=== PATIENT | male | born 1945 | race Caucasian/White ===

== ENCOUNTER 2016-04-02 13:26 | Inpatient (IN) | payer OTHER ==
--- NOTE | 2016-04-02 13:52 | PROVIDER DOCUMENTATION ---
Addendum entered and electronically signed by Domingo Gusman Scribe 04/02/16 17 :32: Departure - Departure Time of Disposition Order: 17:31 DIAGNOSIS: Elevated d-dimer, Palpitations CHF (congestive heart failure) Qualifiers: Congestive heart failure type: unspecified congestive heart failure type Congestive heart failure chronicity: unspecified congestive heart failure chronicity Qualified Code(s): I50.9 - Heart failure, unspecified Disposition: ADMITTED INPATIENT 09 Certified Medical Emergency: Emergent Condition: Stable Additional Instructions: Follow up with pcp. Take lasix as instructed ED Follow Up Instructions: You have been treated by a care provider in the Emergency Department. These instructions are being provided to you so you can have an understanding of how to care for yourself upon discharge. Upon discharge from the Emergency Department, you are responsible for making arrangements for follow-up care by a physician of your choice. Take all prescribed medications as directed. Return to the Emergency Department immediately for any new or worsening symptoms. You may call the Physician Referral phone number at [phone] to obtain a list of Physicians who are taking new patients. Referrals: None,PCP [Primary Care Provider] - Original Note: HPI-Cardiac General - General Source: patient - History of Present Illness-Cardiac Onset/Duration: just prior to arrival Timing: still present Palpitation Quality: fast/pounding heart beat Prior Chest Pain/Cardiac Workup: reports: no prior chest pain Associated Symptoms: reports: fatigue, weakness <Domingo Gusman - Last Filed: 04/02/16 17:31> <Leora David - Last Filed: 04/02/16 17:55> - General Chief Complaint: Palpitations Stated Complaint: sent from urgent care for further eval Time Seen by Provider: 04/02/16 13:40 - History of Present Illness-Cardiac Nature of Presenting Problem: 70 Yo M presents to the ER referred by Urgent care due to palpitations and heart murmur. Pt reports he feels fine just having weakness. Pt reports they have a referral to but urgent care told them to come to er. Pt has had recent cough and sinus congestion. (Domingo Gusman) Reports severe SOB and he can hardly walk. [id number] on ED arrival. Sent over from an Urgent care. Pt does not see doctors with stating last doctor visit was in [address]. Dr. Orozco paged for possible [facility] admission - it is after 5PM. (Leora David) Review of Systems - Adult - REVIEW OF SYSTEMS - ADULT Constitutional: denies: chills, fever, fatique Eyes: reports: no symptoms reported Ears, Nose, Mouth & Throat: reports: no symptoms reported Cardiovascular: reports: see HPI, palpitations. denies: chest pain, edema Respiratory: denies: cough, shortness of breath, wheezing Gastrointestinal: reports: no symptoms reported Genitourinary: reports: no symptoms reported Musculoskeletal: reports: no symptoms reported Integumentary: reports: no symptoms reported Neurological: reports: no symptoms reported Psychiatric: reports: no symptoms reported Endocrine: reports: no symptoms reported Hematologic/Lymphatic: reports: no symptoms reported Allergic/Immunologic: reports: no symptoms reported All Other Systems: Reviewed and Negative <Domingo Gusman - Last Filed: 04/02/16 17:31> Past History - Adult - PAST MEDICAL HISTORY-ADULT Review of Records: reports: Nursing Assessment Review Major Childhood Illnesses: reports: denies history Cardiovascular: reports: denies history Respiratory: reports: denies history - IMMUNIZATION STATUS Childhood Immunizations: See Nurse Assessment Flu Vaccine: See Nurse Assessment - SOCIAL HISTORY Smoking: denies Substance Use: none/never <Domingo Gusman - Last Filed: 04/02/16 17:31> Physical Exam-General - PHYSICAL EXAM-ADULT Initial Vital Signs Reviewed: Yes - CONSTITUTIONAL General Appearance: appears well, alert - EYES Eyes: pink conjunctivae, fundi clear, no AV nicking - RESPIRATORY Respiratory: chest non-tender, lungs clear, normal breath sounds, no respiratory distress - CARDIOVASCULAR Cardiovascular: tachycardia - MUSCULOSKELETAL Back Exam: no CVA tenderness, no vertebral tenderness Extremity: normal range of motion, non-tender - SKIN Integumentary: normal color, warm/dry - PSYCHIATRIC Psych/Mental Status: normal mood/affect, normal thought content, normal thought process, oriented x 3 <Domingo Gusman - Last Filed: 04/02/16 17:31> Progress - EKG 1 Time of EKG reading by physician:: 13:49 EKG Read and Signed by:: Leora David EKG Interpretation (*Must complete 3 of following elements*): Abnormal ( possible LAE) Rate: 112 Rhythm: sinus tachycardia [place]: left - XRAY 1 XRAY: Bilateral XRAY Study: Chest Impression: Normal XRAY Interpretation: cmg; ? nodule mid left lung follow recommended - CT/MRI 1 CT Study: Thorax Impression: Abnormal, See EMR Report CT Results: warehouse traffic supervisor pe;cmg;atelectasis; <Domingo Gusman - Last Filed: 04/02/16 17:31> - REASSESSMENT Reassessment #1 Time Reassessed: 17:48 Status: unchanged (Discussed with Dr. Roman, who agrees admit and also agrees to admit to Dr. Orozco at [facility]) - CONSULTS/PCP/HOSPITALIST Notification Time Discussed: 17:39 Reason/Comments: Admit to Dr. Orozco at [facility] <Triston Davidnikko X - Last Filed: 04/02/16 17:55> - PLAN OF CARE/RESULTS Progress/Plan/Lab Results: Orders Category Date Time Status Cardiac Monitoring DIRECTED Care 04/02/16 13:55 Active Saline Loc NOW Care 04/02/16 13:55 Active CHEST-2 VIEWS [RAD] Stat Exams 04/02/16 13:55 Ordered CBC WITH ELECTRONIC DIFF [HEME] Stat Lab 04/02/16 13:55 Uncollected CK PROFILE [SP CHEM] Stat Lab 04/02/16 13:55 Uncollected COMPREHENSIVE METABOLIC PANEL [CHEM] Stat Lab 04/02/16 13:55 Uncollected D-DIMER [CHEM] Stat Lab 04/02/16 13:55 Uncollected MAGNESIUM [CHEM] Stat Lab 04/02/16 13:55 Uncollected PRO B-NATRIURETIC PEPTIDE Stat Lab 04/02/16 13:55 Uncollected PROTIME WITH INR [COAG] Stat Lab 04/02/16 13:55 Uncollected PTT [COAG] Stat Lab 04/02/16 13:55 Uncollected TROPONIN T Stat Lab 04/02/16 13:55 Uncollected EKG [EKG] Stat Ther 04/02/16 13:34 Ordered Vital Signs - 24 hr 04/02/16 13:35 Temperature 97.3 F L Pulse Rate 119 H Respiratory 22 Rate Blood Pressure 134/89 O2 Sat by Pulse 97 Oximetry Laboratory Tests 04/02/16 04/02/16 04/02/16 14:35 14:35 14:35 WBC 7.68 RBC 5.61 Hgb 17.1 Hct 52.0 MCV 92.7 MCH 30.5 MCHC 32.9 L RDW Std Deviation 15.1 H Plt Count 204 MPV 11.2 H Immature Gran % (Auto) 0.0 Neut % (Auto) 71.1 Lymph % (Auto) 19.4 L [place] % (Auto) 8.5 Eos % (Auto) 0.5 Baso % (Auto) 0.5 Immature Gran # (Auto) 0.00 Neut # (Auto) 5.46 Lymph # (Auto) 1.49 [place] # (Auto) 0.65 H Eos # (Auto) 0.04 Baso # (Auto) 0.04 PT INR PTT (Actin FS) D-Dimer 0.69 H Sodium 145 Potassium 4.8 Chloride 103 Carbon Dioxide 20 L Anion Gap 22 BUN 16 Creatinine 1.9 H Estimated GFR/1.73 m2 35 BUN/Creatinine Ratio 8 Glucose 128 H Calculated Osmolality 292 Calcium 9.6 Magnesium 2.0 Total Bilirubin 2.63 H AST 34 ALT 21 Alkaline Phosphatase 83 Creatine Kinase 178 Troponin T Fgo-D-Ncsdzicsbhi Pept Total Protein 7.7 Albumin 4.1 Globulin 3.6 Albumin/Globulin Ratio 1.1 04/02/16 04/02/16 04/02/16 14:35 14:35 14:35 WBC RBC Hgb Hct MCV MCH MCHC RDW Std Deviation Plt Count MPV Immature Gran % (Auto) Neut % (Auto) Lymph % (Auto) [place] % (Auto) Eos % (Auto) Baso % (Auto) Immature Gran # (Auto) Neut # (Auto) Lymph # (Auto) [place] # (Auto) Eos # (Auto) Baso # (Auto) PT 14.0 H INR 1.32 PTT (Actin FS) 29.0 D-Dimer Sodium Potassium Chloride Carbon Dioxide Anion Gap BUN Creatinine Estimated GFR/1.73 m2 BUN/Creatinine Ratio Glucose Calculated Osmolality Calcium Magnesium Total Bilirubin AST ALT Alkaline Phosphatase Creatine Kinase Troponin T < 0.010 Dld-D-Xgjmvgxjzim Pept 4674 H Total Protein Albumin Globulin Albumin/Globulin Ratio (Domnigo Gusman) Laboratory Results - last 24 hr 04/02/16 04/02/16 04/02/16 14:35 14:35 14:35 WBC 7.68 RBC 5.61 Hgb 17.1 Hct 52.0 MCV 92.7 MCH 30.5 MCHC 32.9 L RDW Std Deviation 15.1 H Plt Count 204 MPV 11.2 H Immature Gran % (Auto) 0.0 Neut % (Auto) 71.1 Lymph % (Auto) 19.4 L [place] % (Auto) 8.5 Eos % (Auto) 0.5 Baso % (Auto) 0.5 Immature Gran # (Auto) 0.00 Neut # (Auto) 5.46 Lymph # (Auto) 1.49 [place] # (Auto) 0.65 H Eos # (Auto) 0.04 Baso # (Auto) 0.04 PT INR PTT (Actin FS) D-Dimer 0.69 H Sodium 145 Potassium 4.8 Chloride 103 Carbon Dioxide 20 L Anion Gap 22 BUN 16 Creatinine 1.9 H Estimated GFR/1.73 m2 35 BUN/Creatinine Ratio 8 Glucose 128 H Calculated Osmolality 292 Calcium 9.6 Magnesium 2.0 Total Bilirubin 2.63 H AST 34 ALT 21 Alkaline Phosphatase 83 Creatine Kinase 178 Troponin T Nzw-D-Ndzlmijnpud Pept Total Protein 7.7 Albumin 4.1 Globulin 3.6 Albumin/Globulin Ratio 1.1 04/02/16 04/02/16 04/02/16 14:35 14:35 14:35 WBC RBC Hgb Hct MCV MCH MCHC RDW Std Deviation Plt Count MPV Immature Gran % (Auto) Neut % (Auto) Lymph % (Auto) [place] % (Auto) Eos % (Auto) Baso % (Auto) Immature Gran # (Auto) Neut # (Auto) Lymph # (Auto) [place] # (Auto) Eos # (Auto) Baso # (Auto) PT 14.0 H INR 1.32 PTT (Actin FS) 29.0 D-Dimer Sodium Potassium Chloride Carbon Dioxide Anion Gap BUN Creatinine Estimated GFR/1.73 m2 BUN/Creatinine Ratio Glucose Calculated Osmolality Calcium Magnesium Total Bilirubin AST ALT Alkaline Phosphatase Creatine Kinase Troponin T < 0.010 Zmi-V-Kopzfdkkhbw Pept 4674 H Total Protein Albumin Globulin Albumin/Globulin Ratio Orders Category Date Time Status Cardiac Monitoring DIRECTED Care 04/02/16 13:55 Active Saline Loc NOW Care 04/02/16 13:55 Active CHEST-2 VIEWS [RAD] Stat Exams 04/02/16 13:55 Completed Chest [CT THORAX W/O CONTRAST] [CT] Stat Exams 04/02/16 16:11 Draft CBC WITH ELECTRONIC DIFF [HEME] Stat Lab 04/02/16 14:35 Completed CK PROFILE [SP CHEM] Stat Lab 04/02/16 14:35 Completed COMPREHENSIVE METABOLIC PANEL [CHEM] Stat Lab 04/02/16 14:35 Completed D-DIMER [CHEM] Stat Lab 04/02/16 14:35 Completed MAGNESIUM [CHEM] Stat Lab 04/02/16 14:35 Completed PRO B-NATRIURETIC PEPTIDE Stat Lab 04/02/16 14:35 Completed PROTIME WITH INR [COAG] Stat Lab 04/02/16 14:35 Completed PTT [COAG] Stat Lab 04/02/16 14:35 Completed TROPONIN T Stat Lab 04/02/16 14:35 Completed Furosemide [Lasix] Med 04/02/16 17:09 Discontinued 80 mg IV NOW ONE EKG [EKG] Stat Ther 04/02/16 13:34 Ordered Vital Signs Temp Pulse Resp BP Pulse Ox 04/02/16 15:32 117 H 31 H 131/100 04/02/16 14:00 109 H 30 H 133/103 95 04/02/16 13:35 97.3 F L 119 H 22 134/89 97 Laboratory 04/02/16 04/02/16 04/02/16 14:35 14:35 14:35 WBC RBC Hgb Hct MCV MCH MCHC RDW Std Deviation Plt Count MPV Immature Gran % (Auto) Neut % (Auto) Lymph % (Auto) [place] % (Auto) Eos % (Auto) Baso % (Auto) Immature Gran # (Auto) Neut # (Auto) Lymph # (Auto) [place] # (Auto) Eos # (Auto) Baso # (Auto) PT 14.0 H INR 1.32 PTT (Actin FS) 29.0 D-Dimer Sodium Potassium Chloride Carbon Dioxide Anion Gap BUN Creatinine Estimated GFR/1.73 m2 BUN/Creatinine Ratio Glucose Calculated Osmolality Calcium Magnesium Total Bilirubin AST ALT Alkaline Phosphatase Creatine Kinase Troponin T < 0.010 Niy-G-Dzabomrqgih Pept 4674 H Total Protein Albumin Globulin Albumin/Globulin Ratio 04/02/16 04/02/16 04/02/16 14:35 14:35 14:35 WBC 7.68 RBC 5.61 Hgb 17.1 Hct 52.0 MCV 92.7 MCH 30.5 MCHC 32.9 L RDW Std Deviation 15.1 H Plt Count 204 MPV 11.2 H Immature Gran % (Auto) 0.0 Neut % (Auto) 71.1 Lymph % (Auto) 19.4 L [place] % (Auto) 8.5 Eos % (Auto) 0.5 Baso % (Auto) 0.5 Immature Gran # (Auto) 0.00 Neut # (Auto) 5.46 Lymph # (Auto) 1.49 [place] # (Auto) 0.65 H Eos # (Auto) 0.04 Baso # (Auto) 0.04 PT INR PTT (Actin FS) D-Dimer 0.69 H Sodium 145 Potassium 4.8 Chloride 103 Carbon Dioxide 20 L Anion Gap 22 BUN 16 Creatinine 1.9 H Estimated GFR/1.73 m2 35 BUN/Creatinine Ratio 8 Glucose 128 H Calculated Osmolality 292 Calcium 9.6 Magnesium 2.0 Total Bilirubin 2.63 H AST 34 ALT 21 Alkaline Phosphatase 83 Creatine Kinase 178 Troponin T Rse-S-Zgbauqpihfo Pept Total Protein 7.7 Albumin 4.1 Globulin 3.6 Albumin/Globulin Ratio 1.1 (Leora David) Departure - Departure Time of Disposition Order: 17:25 Certified Medical Emergency: Emergent <Domingo Gusman - Last Filed: 04/02/16 17:31> - Departure Time of Disposition Order: 17:38 Certified Medical Emergency: Emergent <Leora David - Last Filed: 04/02/16 17:55> - Departure DIAGNOSIS: Elevated d-dimer, Palpitations CHF (congestive heart failure) Qualifiers: Congestive heart failure type: unspecified congestive heart failure type Congestive heart failure chronicity: unspecified congestive heart failure chronicity Qualified Code(s): I50.9 - Heart failure, unspecified Disposition: ADMITTED INPATIENT 09 Condition: Stable Additional Instructions: ED Follow Up Instructions: You have been treated by a care provider in the Emergency Department. These instructions are being provided to you so you can have an understanding of how to care for yourself upon discharge. Upon discharge from the Emergency Department, you are responsible for making arrangements for follow-up care by a physician of your choice. Take all prescribed medications as directed. Return to the Emergency Department immediately for any new or worsening symptoms. You may call the Physician Referral phone number at [phone] to obtain a list of Physicians who are taking new patients. Referrals: None,PCP [Primary Care Provider] - Attestation - Scribe Verification/Attestation Scribe:: Domingo Gusman Acting as Scribe for:: Leora David Scribe documention review:: This chart was documented by a scribe and accurately reflects the service the provider performed and the decisions made by the provider. <Domingo Gusman - Last Filed: 04/02/16 17:31> Physician Attestation
--- NOTE | 2016-04-02 14:41 | Diag Imaging Result Document ---
PROCEDURE NAME: CHEST-2 VIEWS - 04/02/2016 FRONTAL AND LATERAL CHEST, 2 VIEWS: FINDINGS: The lungs are well expanded. The heart is enlarged. The vessels are not distended. The right hemidiaphragm is mildly elevated. No pleural effusions. No pneumonia. Questionable nodule in the mid left lung. No other abnormality. IMPRESSION: 1. Cardiomegaly. 2. Questionable nodule in the mid left lung. Additional or followup films recommended.
[2016-04-02 14:56] LABS: MANUAL DIFF NEEDED? NO
[2016-04-02 15:05] LABS: BASO% 0.5 % (0.0-0.8); EOS# 0.04 X1000 (0.0-0.7); EOS% 0.5 % (0.0-10.0); HEMOGLOBIN 17.1 g/dL (14.0-18.0); LYMPH# 1.49 X1000 (1.2-3.4); LYMPH% 19.4 % (20.5-51.1); MCH 30.5 PG (27-31); MCHC 32.9 g/dL (33-37); MCV 92.7 FL (81-99); MONO# 0.65 X1000 (0.11-0.59); MONO% 8.5 % (1.7-9.3); MPV 11.2 FL (7.4-10.4); NEUT% 71.1 % (42.2-75.2); PLT 204 X1000 (130-400); RBC 5.61 XMIL (4.7-6.1)
[2016-04-02 15:14] LABS: INR 1.32
[2016-04-02 16:01] LABS: ALBUMIN 4.1 g/dL (3.5-5.0); CALCIUM 9.6 mg/dL (8.8-10.2); POTASSIUM 4.8 mmol/L (3.5-5.1); TOTAL BILIRUBIN 2.63 mg/dL (0.20-1.00); TOTAL PROTEIN 7.7 g/dL (6.3-8.3)
--- NOTE | 2016-04-02 17:06 | Diag Imaging Result Document ---
PROCEDURE NAME: CT THORAX W/O CONTRAST - 04/02/2016 CT CHEST WITHOUT CONTRAST. TECHNIQUE: Dose reduction protocol. FINDINGS: There is a moderate sized right-sided pleural effusion measuring 5.3 cm posteriorly and inferiorly in the midline. No left-sided effusion. Heart is enlarged. No thoracic aortic aneurysm. Mildly enlarged mediastinal lymph nodes. There are several faintly calcified left hilar lymph nodes and there is a calcified granuloma laterally in the mid left lung within the left upper lobe. Atelectasis to the lower right lung. Questionable tiny underlying infiltrates. Mild vascular distention. IMPRESSION: 1. Cardiomegaly with a moderate sized right effusion and mild pulmonary edema. 2. Atelectasis. 3. There is evidence of a prior granulomatous infection. A preliminary report was given at 4:47 p.m.
[2016-04-02] MEDS ORDERED: LASIX IV ONE (17:09)
[2016-04-02] MEDS ORDERED: LOVENOX SUBQ ONE ×2 (17:54→18:14)
--- NOTE | 2016-04-03 07:33 | EKG Report ---
Test Performed on : 04/02/2016 1:49:50 PM Test Reason : sob Blood Pressure : / mmHG Vent. Rate : 112 BPM Atrial Rate : 112 BPM P-R Int : 146 ms QRS Dur : 086 ms QT Int : 364 ms P-R-T Axes : 070 -40 040 degrees QTc Int : 496 ms Sinus tachycardia. Possible Left atrial enlargement Left axis deviation Abnormal ECG No previous ECGs available Unconfirmed Result
[2016-04-03 09:10] LABS: MANUAL DIFF NEEDED? NO
[2016-04-03 09:13] LABS: BASO% 0.8 % (0.0-0.8); EOS# 0.04 X1000 (0.0-0.7); EOS% 0.5 % (0.0-10.0); HEMOGLOBIN 16.6 g/dL (14.0-18.0); IMM GRAN# 0.02 X1000 (0.0-0.04); IMM GRAN% 0.3 % (0.0-0.5); LYMPH% 19.1 % (20.5-51.1); MCH 29.7 PG (27-31); MCHC 32.5 g/dL (33-37); MCV 91.2 FL (81-99); MONO# 0.73 X1000 (0.11-0.59); MONO% 9.3 % (1.7-9.3); PLT 197 X1000 (130-400); RBC 5.59 XMIL (4.7-6.1)
[2016-04-03 10:07] LABS: ALBUMIN 4.2 g/dL (3.5-5.0); POTASSIUM 3.8 mmol/L (3.5-5.1); TOTAL BILIRUBIN 2.6 mg/dL (0.20-1.00); TOTAL PROTEIN 7.4 g/dL (6.3-8.3)
[2016-04-03] MEDS ORDERED: ZOFRAN IV PRN (11:27)
[2016-04-03] MEDS ORDERED: TYLENOL PO PRN (11:27)
[2016-04-03 11:39] LABS: AMYLASE 49 U/L (20-200); LIPASE 65 U/L (13-60)
[2016-04-03] MEDS: LASIX IV SCH (12:28)
[2016-04-03] MEDS: COREG PO SCH ×2 (12:28→21:07)
--- NOTE | 2016-04-03 14:54 | ECHO REPORT ---
ORDER DATE: 04/03/2016 ECHOCARDIOGRAPHIC MEASUREMENTS: 1. Interventricular septum 1.0. 2. Left ventricular posterior wall 1.0. 3. Diastolic diameter 5.8. 4. Left atrium 4.4. 5. Aorta 3.6. FINDINGS: 1. There is moderate biatrial enlargement. 2. Normal left ventricular cavity size. Estimated ejection fraction of 50-55%. There is inferior wall hypokinesis. 3. There is mild prolapse of the posterior mitral valve leaflet. 4. Aortic valve leaflets were trileaflet. Tricuspid valve was normal. Mitral valve as above. Pulmonic valve was normal. 5. There is no aortic stenosis or regurgitation. There is moderate to severe mitral regurgitation. Would recommend transesophageal echocardiogram to assess mitral regurgitation. 6. There is mild to moderate tricuspid regurgitation. Peak velocity across the tricuspid valve was 3 m/sec. Pulmonary artery systolic pressure 46-50 mmHg. 7. Trace to mild pulmonary regurgitation. 8. There is no pericardial effusion or obvious intracardiac mass or thrombus.
--- NOTE | 2016-04-03 15:35 | HISTORY AND PHYSICAL ---
CHIEF COMPLAINT: He was sent from urgent care center for palpitations, weakness and a sinus infection. HISTORY OF PRESENTING ILLNESS: This is a 70-year-old, male, who presented to [facility] ER after he was seen at a walk-in urgent care clinic, and they felt that he needed further evaluation after he presented there with complaints of weakness, palpitation and a sinus infection. States that he has had generalized weakness and fatigue for the past month. States he has not seen a primary care physician since 2001. When he arrived to the emergency room, he had a heart rate of 119. Blood pressure 134/89. Laboratory data showed a D-dimer of 0.69. Creatinine of 1.9. Total bilirubin of 2.63. A proBNP of 4674. EKG showed sinus tachycardia at 112. CT of the chest showed cardiomegaly with a moderate sized right effusion and mild pulmonary edema, atelectasis. So he was admitted for further evaluation and treatment. PAST MEDICAL HISTORY: Denies. PAST SURGICAL HISTORY: Finger surgery with no complications. FAMILY HISTORY: He had a mother who has type 2 diabetes. SOCIAL HISTORY: Lives with family. States he quit smoking 20 years ago. Drinks alcohol on weekends only and denied any illicit drug use. ALLERGIES: He has no known drug allergies. HOME MEDICATIONS: He does not take any medications on a routine basis. LABORATORY DATA: Showed a white blood cell count of 7.68, hemoglobin 17.1, hematocrit 52, platelets 204. PT and INR of 14 and 1.32. D-dimer of 0.69. Sodium of 145, potassium 4.8, chloride 103, CO2 of 20, BUN of 16, creatinine 1.9, glucose 128, magnesium of 2. Total bilirubin of 2.63. AST was 34, ALT 21. Troponin of 4674. Creatine kinase of 178. Troponin less than 0.010. EKG showed sinus tachycardia at 112. Chest x-ray showed cardiomegaly and a questionable nodule in the mid left lung. Chest CT showed cardiomegaly with a moderate size right effusion and mild pulmonary edema, atelectasis and evidence of a prior granulomatous infection. REVIEW OF SYSTEMS: He denied any fever, chills, blurred vision, dizziness. He denied any chest pain, but was positive for some palpitations, generalized weakness, shortness of breath on exertion. Cough with clear sputum. Denied any abdominal pain, constipation, diarrhea, burning or hurting with urination. PHYSICAL EXAMINATION: VITAL SIGNS: Temperature 97.3, pulse 119, respirations 22, blood pressure 134/ 89, saturating 97% on room air. GENERAL: This is a 70-year-old, male, who is lying in the bed, and answers questions appropriately. HEENT: Normocephalic and atraumatic. Pupils are equal, round, reactive to light. Extraocular movements are intact. Oropharynx and nares are clear. NECK: Supple. LUNGS: Clear to auscultation bilaterally with equal lung expansion and chest wall movement. HEART: With a noted holosystolic murmur. No rubs or gallops noted. ABDOMEN: Soft, nontender, nondistended. Bowel sounds are present x4 quadrants. EXTREMITIES: No clubbing, cyanosis, or edema. NEUROLOGICAL: Cranial nerves 2-12 are grossly intact. ASSESSMENT: 1. Acute congestive heart failure exacerbation new onset. 2. Generalized weakness. 3. Acute kidney injury. 4. Hyperbilirubinemia. 5. Moderate right pleural effusion. PLAN: He has been admitted to the medical unit at [facility]. Placed on telemetry. Healthy heart diet. We will recheck a CBC and a BMP in the a.m. and a GGT. Check a hepatic function and hepatitis profile and a ProBNP in the a.m. Will continue Lasix 40 mg IV q.12, Coreg 3.125 mg p.o. b.i.d., Tylenol 650 mg p.o. q.6 hours p.r.n., and Zofran 4 mg IV q.4 hours p.r.n. We will do daily weights. Dictated by CHANCE Tellez for Gabriele Orozco MD pt examined, likely chf, possibly due to valvular insufficiency, await echo results, continue diuresis, and monitor renal function closely, working elevated liver enzymes, otherwise agree with above APENOT MTDD
[2016-04-04] MEDS: LASIX IV SCH ×2 (00:25→12:04)
[2016-04-04 06:42] LABS: HEMOGLOBIN 16.2 g/dL (14.0-18.0); MCH 29.1 PG (27-31); MCHC 32.4 g/dL (33-37); MCV 89.9 FL (81-99); MPV 11.4 FL (7.4-10.4); RBC 5.56 XMIL (4.7-6.1)
[2016-04-04 07:17] LABS: ALBUMIN 3.8 g/dL (3.5-5.0); CALCIUM 9.3 mg/dL (8.8-10.2); DIRECT BILIRUBIN 0.5 mg/dL (0.00-0.20); POTASSIUM 3.7 mmol/L (3.5-5.1); TOTAL BILIRUBIN 2.4 mg/dL (0.20-1.00); TOTAL PROTEIN 6.9 g/dL (6.3-8.3)
[2016-04-04] MEDS: COREG PO SCH (09:13)
--- NOTE | 2016-04-04 16:29 | CONSULTATION ---
DATE OF CONSULTATION: 04/04/2016 INDICATION: Shortness of breath. Heart failure. HISTORY OF PRESENT ILLNESS: Mr. Molina is a 70-year-old white male who has apparently been dealing with episodic shortness of breath and fatigue for years. His who is present in the room ultimately got him to present to an urgent care where he was ultimately sent to the hospital for further evaluation. Hospital evaluation has demonstrated severe mitral regurgitation and evidence for heart failure on his exam. The patient adamantly denies any episodes of chest pain. He walks around 2 miles a day in 45 minutes. He will of 20-[address], take a few minutes rest and then walk 20-[address] He does not have any episodes of orthopnea. Again, no chest pain. No recent fevers or chills. He denies any lower extremity edema. PAST MEDICAL HISTORY: He has no past medical history that he is aware of. However, this is likely due to lack of contact with the medical community. SOCIAL HISTORY: He uses smokeless tobacco. He used to smoke around 30 years ago, but quit after he was in [place]. He is . FAMILY HISTORY: Significant for hypertension. His mother had a history of coronary artery disease and a stroke, but this was in her 80's. REVIEW OF SYSTEMS: A 10 system review of systems is negative except for those things mentioned in HPI. PHYSICAL EXAMINATION: vital signs: He has been afebrile during this hospitalization. His heart rates have been in the 90s to 110s or so. His blood pressure is 106/71. Intake and output: His intake and output during this hospitalization have been negative, around 1500 mL or so. General: He is in no acute distress. HEENT: Oropharynx is moist. He has normal dentition. His eye examination shows pink conjunctivae, white sclerae. Neck: Examination shows no obvious thyromegaly or thyroid tenderness. Cardiovascular: He is in a regular rate and rhythm. He has a 3/6 holosystolic murmur best heard at the apex suggestive of mitral regurgitation. He has no lower extremity edema. Warm and well perfused lower extremities. He has no carotid bruits. Chest: His chest exam was clear to auscultation bilaterally. No increased work of breathing. Abdomen: Soft, nontender, nondistended. He has no obvious organomegaly. Skin: Warm and dry throughout without any rashes. Neurological: He is moving all extremities well. Cranial nerves 2-12 are intact without any sensation deficits. Psychiatric: Alert, oriented and pleasant, normal mood and affect. PERTINENT DATA: His EKG demonstrated sinus tachycardia. He has evidence for left atrial enlargement. Possible inferior Q-waves are noted. They are extremely small. He had a chest CT performed that demonstrated cardiomegaly with a moderate size right-sided effusion. Mild pulmonary edema. Atelectasis was noted. He had a chest x-ray demonstrating cardiomegaly. He had an echocardiogram that demonstrated an EF that appeared to be in the 50-55% range. There did appear to be inferior mid to basilar hypokinesis most notable in the apical 2 chamber views. He does have what appears to be severe mitral regurgitation with left atrial enlargement. ASSESSMENT: 1. Severe mitral regurgitation. 2. New presentation of heart failure. 3. Wall motion abnormality on echo. PLAN: I have had an at length discussion with the patient. I believe heart catheterization would be the most appropriate initial evaluation in this patient secondary to a wall motion abnormality noted on his echo. This could be a presentation of ischemic mitral regurgitation. I would do a right and left heart catheterization. Given that the patient is currently at [facility], we will likely transfer him over to [facility], such that we would not be in a situation of multiple transfers from [place] to [place] and then [place] to [place] if needed. The patient is in agreement with this. He is currently on a beta-kaitlin and IV diuretics. I will continue these medications. I will try to add in a small dose of NADIRA inhibitor, specifically we will add in lisinopril at a dose of 2.5 mg daily. He does appear to have had some diuresis during the hospitalization.
[2016-04-04 16:52] VITALS: BP 114/84
[2016-04-04] MEDS ORDERED: PRINIVIL PO SCH (21:00)
[2016-04-05 12:39] LABS: HEPATITIS PROFILE ACUTE SEE COMMENTS (())
--- NOTE | 2016-05-07 17:56 | DISCHARGE SUMMARY ---
ADMISSION DATE: 04/02/2016 DISCHARGE DATE: 04/04/2016 DISCHARGE DIAGNOSES: 1. Palpitations. 2. Acute congestive heart failure, acute, new onset. 3. Acute kidney injury. 4. Severe mitral regurgitation. 5. Wall motion abnormalities. HISTORY AND HOSPITAL COURSE: Briefly, this is a 70-year-old gentleman who presented from home initially from Urgent Care for shortness of breath and palpitations. He was sent to the hospital for evaluation. Chest pain evaluation included negative cardiac enzymes and telemetry however echocardiogram showed severe mitral regurgitation and congestive heart failure. He had a cardiological evaluation per Dr. Mario Lance who felt he had severe MR and new onset heart failure. He felt he was a good candidate for left heart cardiac catheterization as well as possible evaluation for mitral valve replacement. He was evaluated for that and was transferred to [facility] for left heart catheterization and evaluation for mitral regurgitation repair. He was maintained on NADIRA inhibitor. He has been on beta kaitlin, and diuretics. He was maintained on those medications. Further care will be per [facility].
== END 2016-04-04 18:30 | disposition short-term general hospital (02) | DRG 292 ==
LOC: ED 13:26 → P.MEDSURG 18:53
PROVIDERS: ATTEND Internal Medicine
DX: I50.9 Heart failure, unspecified (principal); N17.9 Acute kidney failure, unspecified; I34.0 Nonrheumatic mitral (valve) insufficiency; F17.220 Nicotine dependence, chewing tobacco, uncomplicated; Z83.3 Family history of diabetes mellitus; Z82.3 Family history of stroke; Z82.49 Family history of ischemic heart disease and other diseases of the circulatory system; E80.6 Other disorders of bilirubin metabolism
CPT/HCPCS: 36415; 71020; 71250; 80048; 80053; 80074; 80076; 82150; 82550; 82948; 82977; 83690; 83735; 83880; 84484; 85025; 85027; 85379; 85610; 85730; 93005; 93306; 96372; 96374; J1650; J1940